=== PATIENT | female | born 1960 | race African-American/Black ===

== ENCOUNTER → 2016-12-28 | Outpatient (CLI) | payer OTHER ==
[2015-06-29 15:25] VITALS: BP 154/88
[~2016-12-28] MED LIST: CETI10TA22 PO; ESTR1TAB15 PO; HYDR12.53 PO; ISOS30TA4 PO; LACT1CAP6 PO; MULT-246 PO; NAPR220C4 PO; NITR0.4T6 SL; OMEP40CA5 PO
--- NOTE | 2016-12-28 15:17 | RAD ---
Indication chronic low back pain. AP and lateral views of the lumbar spine were obtained as well as a coned view targeted to the lumbosacral junction. Vertebral height and alignment are well maintained. There is mild scoliosis. There is disc space narrowing at L4-5 and L5-S1. Facet degenerative changes are noted at L3-4, L4-5 and L5-S1. An acute bony finding is not apparent. IMPRESSION: Chronic and degenerative changes. No acute finding seen
--- NOTE | 2016-12-28 15:19 | RAD ---
Indication chronic back pain. AP and lateral views of the thoracic spine were obtained as well as a swimmer's view. There is scoliosis. Vertebral height is well maintained. Mild degenerative changes are seen in the thoracic spine. Acute finding is not apparent IMPRESSION: Scoliosis and modest degenerative change. No acute finding seen
== END | disposition home or self-care (01) ==
LOC: RAD 08:00
PROVIDERS: ATTEND Physician Assistant Medical
DX: M47.894 Other spondylosis, thoracic region (principal); M41.84 Other forms of scoliosis, thoracic region
CPT/HCPCS: 72072; 72100

== ENCOUNTER → 2016-12-29 | Outpatient (CLI) | payer OTHER ==
[2015-06-29 15:25] VITALS: BP 154/88
[~2016-12-29] MED LIST changes: +IOHEXOL 180 MG/ML 10 ML VIAL. ONE; +methylPREDNISolone ACETATE 40 MG/ML VIAL. ONE; +methylPREDNISolone ACETATE 80 MG/ML VIAL. ONE
--- NOTE | 2016-12-29 12:32 | PAIN ---
DATE OF SERVICE: 12/29/2016 DIAGNOSES: Lumbar radiculopathy with lumbar degenerative disk disease. HISTORY OF PRESENT ILLNESS: The patient is a 56-year-old female, who returns for followup status post lumbar epidural steroid injection, last seen on 07/05/2016. The patient did very well after the injection, got about 75-80% improvement overall, but reports that the pain is returning now in the low back. She has been doing some increased heavier housework at home over the last 2 weeks, and the pain has been returning with some spasms in the back and a "lightening" electrical sensation in her low back as well. The patient reports occasional radiation in the bilateral lower extremities, but mostly staying in the low back. The patient reports it is 7 on a scale of 10. Reports no new motor or sensory deficits. No new bowel or bladder incontinence, but significant low back pain more recently. The patient reports no new motor or sensory deficits. No bowel or bladder incontinence. PHYSICAL EXAMINATION: VITAL SIGNS: The patient's blood pressure is 158/98, pulse 81, respirations 18, temperature 98.3 degrees Fahrenheit and weight 294 pounds. GENERAL: The patient is awake, alert, oriented, appropriate, is a very pleasant demeanor. HEENT: Head shows normocephalic, atraumatic. Extraocular movements are intact, symmetrical. Oral cavity shows mucous membranes moist and pink. Dentition is intact. NECK: Shows anterior throat supple without palpable lymphadenopathy noted. Swallow reflex is symmetrical. CHEST: Shows normal on inspection. Breath sounds clear to auscultation bilaterally. HEART: Shows S1 and S2 clear. No murmurs auscultated. ABDOMEN: Soft, obese, nontender, nondistended. No palpable organomegaly is noted. No rebound or guarding demonstrated. BACK: The patient's back shows spine grossly midline. Slight exaggeration of thoracic kyphosis and mild flattening of lumbar lordotic curvature. Lumbar paraspinous muscle shows some moderate tenderness with palpation diffusely in the lower lumbar distribution in the paraspinous muscles only without radiation, without atrophy, hypertrophy or asymmetry. No tenderness over the sacrum or sacroiliac regions. The patient shows good rotational motion of lumbar spine, both laterally as well as extension and flexion without significant discomfort. LOWER EXTREMITIES: Showed deep tendon reflexes 1+ in the patellar and tendo calcaneus tendons. Motor exam is strong with 5/5 dorsiflexion, extension, quadriceps and hamstring flexion and symmetrical. Options were discussed with the patient and the patient's old chart was reviewed as her current medication regimen and updated. Current review of systems updated today as well. We will proceed with a lumbar epidural steroid injection today as the first in this series with fluoroscopic guidance. Risks were again discussed including, but not limited to bleeding, infection, possibility of epidural hematoma, subsequent neurologic compromise, dural puncture, headaches, spinal cord and/or nerve damage, side effects of steroid medication and poor results regarding pain control. The patient understands and wishes to proceed. The patient will return to clinic in approximately 2 weeks for followup. She was counseled on return appointment, activity level and side effects to be aware of. DIAGNOSES: Lumbar radiculopathy with lumbar degenerative disk disease. PROCEDURES: Lumbar epidural steroid injection in translaminar approach at the L4-L5 level using C-arm fluoroscopic guidance under sterile prep and drape using local anesthetic. MEDICATIONS INJECTED: 120 mg of Depo-Medrol plus 10 mL preservative-free normal saline and 2 mL Isovue contrast. CONDITION AT DISCHARGE: Stable. The patient tolerated procedure well, had no complications. ADEBAYO KLEIN MD DR: SHAHZAD/janeen JOB#: [id number] / [id number]
== END | disposition home or self-care (01) ==
LOC: PNCL 08:53
PROVIDERS: ATTEND Anesthesiology
DX: M51.16 Intervertebral disc disorders with radiculopathy, lumbar region (principal); I10 Essential (primary) hypertension; F41.9 Anxiety disorder, unspecified; F32.9 Major depressive disorder, single episode, unspecified; M19.90 Unspecified osteoarthritis, unspecified site; K21.9 Gastro-esophageal reflux disease without esophagitis; Z90.49 Acquired absence of other specified parts of digestive tract; Z90.710 Acquired absence of both cervix and uterus; Z87.440 Personal history of urinary (tract) infections
CPT/HCPCS: 62323; J1030; J1040

== ENCOUNTER → 2017-01-20 | Day surgery (SDC) | payer OTHER ==
[~2017-01-20] MED LIST changes: +ACET325T9 PO; +FENTANYL PF 100 MCG/2 ML VIAL. IV PRN; +HYDROMORPHONE 2 MG/ML VIAL. IV PRN; -IOHEXOL 180 MG/ML 10 ML VIAL. ONE; +IV RINGERS,LACTATED 1000ML 1,000 ML IV SCH; +LIDOCAINE 1% 1 ML SYRINGE. ID PRN; +LIDOCAINE 2% PF Vial for OR 5 ML VIAL. ONE; +MORPHINE SULFATE 2 MG/ML DISP.SYRIN. IV PRN; +ONDANSETRON PF 4 MG/2 ML VIAL. IV PRN; +PROCHLORPERAZINE 10 MG/2 ML VIAL. IV PRN; +PROPOFOL 20 ML IV ONE; -methylPREDNISolone ACETATE 40 MG/ML VIAL. ONE; -methylPREDNISolone ACETATE 80 MG/ML VIAL. ONE
[2017-01-20 08:23] VITALS: BP 148/92
--- NOTE | 2017-01-23 13:18 | PATHOLOGY ---
PATHOLOGY REPORT * * * * * * * * FINAL DIAGNOSIS: Esophageal biopsies, distal esophagus: - Segments of hyperplastic squamous esophageal mucosa and esophagogastric mucosa showing chronic inflammation, consistent with reflux esophagitis. COMMENT: Sections of the distal esophageal biopsy reveal segments of focally tangentially oriented hyperplastic squamous esophageal mucosa and esophagogastric mucosa showing chronic inflammation. The findings are consistent with reflux esophagitis. There is no evidence of Pemberton's change, dysplasia, or malignancy. (JPM:mgrajat; d/t: 01/23/17) REPORT ELECTRONICALLY SIGNED BY: Salvador Fountain M.D. DATE/TIME: 01/23/2017 13:17 * * * * * * * * GROSS PATHOLOGY: Received in formalin labeled "Kathryn Olmos, distal esophagus," are 4 segments of jeter soft tissue measuring 0.7 x 0.5 x 0.3 cm in aggregate dimensions and ranging from 0.4 to 0.6 cm in maximum dimension. The specimen is submitted entirely in cassette A1. (KAH; 01/20/2017) INITIAL CPT CODE(S): A; 74095 Professional services performed by [facility] [place] [address] Technical services performed by [facility] at [address] [place] [address] [address], [place] [address]. SPECIMEN(S) RECEIVED: A.Biopsy distal esophagus CLINICAL HISTORY: GERD PATIENT: KATHRYN PEREZ /AGE: 502/23/1960 (Age: 56) PATIENT #: [id number] ALT CASE #: SPECIMEN COLLECTION DATE: 01/20/2017 SPECIMEN RECEIVED DATE: 01/20/2017 [facility] - [address] [place] [address] - PHONE: [phone] * * * END OF REPORT * * *
== END | disposition home or self-care (01) ==
LOC: ENDOS 07:00
PROVIDERS: ATTEND Internal Medicine Gastroenterology
DX: K21.0 Gastro-esophageal reflux disease with esophagitis (principal); K29.50 Unspecified chronic gastritis without bleeding; I10 Essential (primary) hypertension; K21.9 Gastro-esophageal reflux disease without esophagitis; M19.90 Unspecified osteoarthritis, unspecified site; F41.9 Anxiety disorder, unspecified; F32.9 Major depressive disorder, single episode, unspecified; Z90.710 Acquired absence of both cervix and uterus
CPT/HCPCS: 43239; G0500; J2704; 88305

== ENCOUNTER → 2017-02-03 | Outpatient (CLI) | payer OTHER ==
[2017-01-20 08:23] VITALS: BP 148/92
[~2017-02-03] MED LIST changes: -FENTANYL PF 100 MCG/2 ML VIAL. IV PRN; -HYDROMORPHONE 2 MG/ML VIAL. IV PRN; -IV RINGERS,LACTATED 1000ML 1,000 ML IV SCH; -LIDOCAINE 1% 1 ML SYRINGE. ID PRN; -LIDOCAINE 2% PF Vial for OR 5 ML VIAL. ONE; -MORPHINE SULFATE 2 MG/ML DISP.SYRIN. IV PRN; -ONDANSETRON PF 4 MG/2 ML VIAL. IV PRN; -PROCHLORPERAZINE 10 MG/2 ML VIAL. IV PRN; -PROPOFOL 20 ML IV ONE
--- NOTE | 2017-02-03 09:16 | RAD ---
DATE: 02/03/2017 EXAM: DIGITAL SCREEN BILAT W/CAD HISTORY: Routine screening COMPARISON: 02/02/2016 This study was interpreted with the benefit of Computerized Aided Detection (CAD). FINDINGS: The breasts are primarily fatty replaced. No new or enlarging breast densities are seen. No suspicious microcalcifications are evident. IMPRESSION: Stable mammograms without evidence of malignancy. BI-RADS CATEGORY: 2 BENIGN FINDING(S) RECOMMENDED FOLLOW-UP: 12M 12 MONTH FOLLOW-UP PQRS compliance statement: Patient information was entered into a reminder system with a target due date for the next mammogram. Mammography is a sensitive method for finding small breast cancers, but it does not detect them all and is not a substitute for careful clinical examination. A negative mammogram does not negate a clinically suspicious finding and should not result in delay in biopsying a clinically suspicious abnormality. "Our facility is accredited by the [employer] Mammography Program."
== END | disposition home or self-care (01) ==
LOC: MAMMO 08:00
PROVIDERS: ATTEND Family Medicine
DX: Z12.31 Encounter for screening mammogram for malignant neoplasm of breast (principal)
CPT/HCPCS: G0202; 77067

== ENCOUNTER → 2017-02-17 | Outpatient (CLI) | payer OTHER ==
[2017-01-20 08:23] VITALS: BP 148/92
--- NOTE | 2017-02-17 12:34 | RAD ---
Exam performed: Thyroid ultrasound. Indication: Cough, thyromegaly, family history of goiter. Date of Service: 02/17/17. Comparison: No priors. Technique: Real-time grayscale imaging of the thyroid gland is performed and images are obtained. Findings: The thyroid gland is somewhat heterogeneous. The right lobe measures 5.5 x 2.2 x 1.6 cm whereas the left lobe measures 4.2 x 1.7 x 1.8 cm. There are numerous scattered subcentimeter cysts in both lobes of the thyroid gland. The largest cyst measures 1.1 x 0.8 x 0.7 cm in the right inferior pole. The thyroid isthmus is normal. There is a 1.0 x 0.9 x 0.9 cm solid vascular nodule in the right aspect of the thyroid isthmus Impression: 1. Solid 1.0 x 0.9 x 0.9 cm nodule in the thyroid isthmus. 2. Multiple subcentimeters ovoid cysts in both lobes of the thyroid gland including a 1.1 cm cyst in the right inferior renal pole.
--- NOTE | 2017-02-17 12:35 | RAD ---
Exam performed: 2 views of the chest. Indication: Cough since November Date of Service:02/17/2017 2:00 AM . Comparison : 06/24/15 Findings: PA and lateral radiographs of the chest reveal a normal cardiomediastinal contour. The lungs are clear. No pleural fluid is seen. The visualized osseous structures are unremarkable. Impression: Radiographically normal chest.
== END | disposition home or self-care (01) ==
LOC: RAD 10:50
PROVIDERS: ATTEND Physician Assistant Medical
DX: E01.0 Iodine-deficiency related diffuse (endemic) goiter (principal); R05 Cough
CPT/HCPCS: 71020; 76536

== ENCOUNTER → 2017-06-08 | Outpatient (CLI) | payer OTHER ==
[2017-01-20 08:23] VITALS: BP 148/92
[~2017-06-08] MED LIST changes: +IOHEXOL 180 MG/ML 10 ML VIAL. ONE; +NITR0.4T22 SL; -NITR0.4T6 SL; +methylPREDNISolone ACETATE 40 MG/ML VIAL. ONE; +methylPREDNISolone ACETATE 80 MG/ML VIAL. ONE
--- NOTE | 2017-06-08 18:21 | PAIN ---
DATE OF SERVICE: 06/08/2017 DIAGNOSIS: Lumbar radiculopathy with lumbar degenerative disk disease. HISTORY OF PRESENT ILLNESS: The patient is a 57-year-old female who returns for followup status post lumbar epidural steroid injection x 1, last seen 12/29/2016. The patient did very well with approximately 80% improvement in terms of her low back and mostly left lower extremity pain, some on the right as well. The patient reports the pain is returning now over the past month or two with increased pain in low back, radiating to the left lower extremity, worse with prolonged standing or sitting, also with walking and standing for more than about 30 minutes to an hour. The patient reports it is anywhere from a 7-8 at it is worst and usually about a 4 or 5, and 4 on a scale of 10 today. The patient reports it is radiating, aching, can be dull and piercing as well in the low back and left leg with some shooting pain in the left leg also. The patient reports she is sleeping fairly well at night, but this has not usually awaken her from sleep. She feels better with lying on her back. PHYSICAL EXAMINATION: VITAL SIGNS: Today, the patient's blood pressure is 175/83, pulse 76, respirations 18, temperature 98.4 degrees Fahrenheit, weight is 303 pounds. GENERAL: The patient is awake, alert, oriented, appropriate, very pleasant demeanor. HEENT: Head shows normocephalic, atraumatic. Extraocular movements are intact, symmetrical. Oral cavity, mucous membranes are moist and pink. Dentition is intact. NECK: Shows anterior throat supple without palpable lymphadenopathy noted. Swallow reflex is symmetrical. CHEST: Shows normal on inspection. Breath sounds are clear to auscultation bilaterally. HEART: Shows S1 and S2 clear. ABDOMEN: Soft, nontender, nondistended, obese. No palpable organomegaly, no rebound or guarding demonstrated. BACK: Shows spine grossly in midline. The patient's normal thoracic kyphosis and has a normal-appearing lumbar lordotic curvature. The patient's lumbar paraspinous muscle shows symmetrical on inspection with palpation shows some moderate tenderness with palpation, but only diffusely without significant radiation or asymmetry, no trigger points, no other abnormalities noted. EXTREMITIES: Lower extremities exam shows deep tendon reflexes 1+ in the patellar and tendo calcaneus tendons. Motor exam is strong with 5/5 dorsiflexion and extension as well as quadriceps and hamstring flexion equal bilaterally. The patient's peripheral pulses are 1+ in the posterior tibial and dorsalis pedis pulses bilaterally. Options were discussed with the patient and the patient's old chart was reviewed as her current medication regimen updated. Current review of systems updated today as well and we will proceed with a second in this series of lumbar epidural steroid injection using C-arm fluoroscopic guidance under sterile prep and drape. Risks were again discussed including, but not limited to bleeding, infection, possibility of epidural hematoma, subsequent neurologic compromise, dural puncture, headaches, spinal cord and/or nerve damage, side effects of steroid medication and poor results regarding pain control. The patient understands and wishes to proceed. The patient will return to clinic in approximately 2 weeks for followup, was counseled on return appointment, activity level and side effects to be aware of. DIAGNOSIS: Lumbar radiculopathy with lumbar degenerative disease. PROCEDURES: Lumbar epidural steroid injection in translaminar approach at the L4-L5 level using C-arm fluoroscopic guidance under sterile prep and drape using a local anesthetic. MEDICATIONS INJECTED: A total of 120 mg Depo-Medrol plus 10 mL of preservative-free normal saline and 2 mL Isovue for contrast. CONDITION AT DISCHARGE: Stable. The patient tolerated procedure well, had no complications. ADEBAYO KLEIN MD DR: SHAHZAD/janene JOB#: [id number] / [id number]
== END | disposition home or self-care (01) ==
LOC: PNCL 13:12
PROVIDERS: ATTEND Anesthesiology
DX: M51.16 Intervertebral disc disorders with radiculopathy, lumbar region (principal); I10 Essential (primary) hypertension; K21.9 Gastro-esophageal reflux disease without esophagitis; M17.0 Bilateral primary osteoarthritis of knee; F41.9 Anxiety disorder, unspecified; F32.9 Major depressive disorder, single episode, unspecified; Z90.710 Acquired absence of both cervix and uterus; Z90.49 Acquired absence of other specified parts of digestive tract; Z88.1 Allergy status to other antibiotic agents
CPT/HCPCS: 62323; J1030; J1040

== ENCOUNTER → 2017-09-15 | Outpatient (CLI) | payer OTHER ==
[2017-01-20 08:23] VITALS: BP 148/92
--- NOTE | 2017-09-15 09:58 | PAIN ---
DATE OF SERVICE: 09/15/2017 PROGRESS NOTE FOR PAIN CLINIC DIAGNOSES: Lumbar radiculopathy with lumbar degenerative disk disease. HISTORY OF PRESENT ILLNESS: The patient is a 57-year-old female who returns for followup status post lumbar epidural steroid injection, most recently seen 06/08/2017, which did very well near 100% improvement, total for the past 3 weeks or so. Pain is returning now in the low back and into the bilateral lower extremities, slow worse on the left than the right but present bilaterally, worse with standing, walking and changing positions. The patient reports it as a 7 on a scale 10 at its worst at least, 8 on average and is 7 today. The patient describes aching, dull, shooting radiating into the low back, posterior gluteus, posterior lateral thigh, lateral anterior thighs, medial knees and into the lower leg, sometimes posteriorly and sometimes medially into the caves bilaterally, essentially equal again somewhat worse on the left at times with walking. The patient reports the pain beginning to wake her from sleep again as it did at last summer but not every night. The patient usually reposition or get out of bed change positions and get back to sleep. The patient reports no new motor or sensory deficits, no new bowel or bladder incontinence or complaints. PHYSICAL EXAMINATION: VITAL SIGNS: Today the patient's blood pressure is 158/95, pulse 95, respirations 20, temperature 98.0 degrees Fahrenheit, weight is 304 pounds. GENERAL: The patient is awake, alert, oriented, appropriate and very pleasant demeanor. HEENT: Head shows normocephalic and atraumatic. Extraocular movements are intact, symmetrical. Oral cavity: Mucous membranes moist and pink. Dentition is intact. NECK: Shows anterior throat supple without palpable lymphadenopathy noted. Swallow reflex symmetrical. CHEST: Shows normal on inspection. Breath sounds are clear to auscultation bilateral. ABDOMEN: Obese, soft, nontender and nondistended. No palpable organomegaly is noted. BACK: Shows spine grossly in the midline. Slight exaggeration of thoracic kyphosis, mild flattening lumbar lordotic curvature. Lumbar paraspinous muscle shows symmetrical on inspection with palpation shows some moderate tenderness along the low lumbar distribution diffusely bilaterally without radiation. The patient's lower extremity showed deep tendon reflexes are 1+ in the patellar and tendo calcaneus tendons, are equal. Motor exam is strong with 5/5 dorsiflexion, extension, quadriceps and hamstring flexion and equal. Peripheral pulses are 1+ posterior tibial. No peripheral edema is noted bilaterally. Options were discussed with the patient. The patient's old chart was reviewed as well as her current medication regimen and updated. Current review of systems updated today as well. We will proceed with a third in the series lumbar epidural steroid injection with fluoroscopic guidance. Risks were again discussed including but not limited to bleeding, infection, possibility of epidural hematoma and subsequent neurological compromise, dural puncture headache, spinal cord and/or nerve damage, side effects of steroid medication and poor results regarding pain control. The patient understands and wished to proceed. The patient to return to clinic in approximately 2 weeks for followup, was counseled on return appointment, activity level and side effects to be aware of. DIAGNOSIS: Lumbar radiculopathy with lumbar degenerative disease. PROCEDURES: Lumbar epidural steroid injection, translaminar approach, L4-L5 level using C-arm fluoroscopic guidance under sterile prep and drape using local anesthetic. MEDICATION INJECTED: A total of 120 mg Depo-Medrol plus 10 mL of preservative-free normal saline and 2 mL of Isovue for contrast. CONDITION AT DISCHARGE: Stable. The patient tolerated procedure well, had no complications. ADEBAYO KLEIN MD DR: SHAHZAD/janene JOB#: [id number] / [id number]
== END ==
LOC: PNCL 08:20
PROVIDERS: ATTEND Anesthesiology
DX: M51.16 Intervertebral disc disorders with radiculopathy, lumbar region (principal); I10 Essential (primary) hypertension; K21.9 Gastro-esophageal reflux disease without esophagitis; F32.9 Major depressive disorder, single episode, unspecified; M19.90 Unspecified osteoarthritis, unspecified site; F41.9 Anxiety disorder, unspecified; Z90.49 Acquired absence of other specified parts of digestive tract; Z90.710 Acquired absence of both cervix and uterus
CPT/HCPCS: 62323; J1030; J1040

== ENCOUNTER → 2018-02-26 | Outpatient (CLI) | payer OTHER ==
[~2018-02-26] MED LIST changes: -ACET325T9 PO; -CETI10TA22 PO; -ESTR1TAB15 PO; -HYDR12.53 PO; +IOHEXOL 180 MG/ML 10 ML VIAL.; -IOHEXOL 180 MG/ML 10 ML VIAL. ONE; -ISOS30TA4 PO; -LACT1CAP6 PO; +LIDOCAINE 1% PF 2 ML VIAL.; -MULT-246 PO; -NAPR220C4 PO; -NITR0.4T22 SL; -OMEP40CA5 PO; +methylPREDNISolone ACETATE 40 MG/ML VIAL.; -methylPREDNISolone ACETATE 40 MG/ML VIAL. ONE; +methylPREDNISolone ACETATE 80 MG/ML VIAL.; -methylPREDNISolone ACETATE 80 MG/ML VIAL. ONE
== END | disposition home or self-care (01) ==
LOC: PNCL 14:01
DX: M51.16 Intervertebral disc disorders with radiculopathy, lumbar region (principal); I10 Essential (primary) hypertension; Z90.49 Acquired absence of other specified parts of digestive tract; Z90.710 Acquired absence of both cervix and uterus; K21.9 Gastro-esophageal reflux disease without esophagitis; F41.9 Anxiety disorder, unspecified; F32.9 Major depressive disorder, single episode, unspecified; M17.0 Bilateral primary osteoarthritis of knee; Z88.1 Allergy status to other antibiotic agents; Z80.1 Family history of malignant neoplasm of trachea, bronchus and lung
CPT/HCPCS: 62323; J1030; J1040; Q9965

== ENCOUNTER → 2018-03-26 | Outpatient (CLI) | payer OTHER | END | disposition home or self-care (01) | LOC: MAMMO 12:43 | DX: Z12.31 Encounter for screening mammogram for malignant neoplasm of breast (principal) | CPT/HCPCS: 77063; 77067 ==

== ENCOUNTER → 2018-06-05 | Outpatient (CLI) | payer OTHER ==
[2017-01-20 08:23] VITALS: BP 148/92
[~2018-06-05] MED LIST changes: +ACET325T9 PO; +CETI10TA22 PO; +ESTR1TAB15 PO; +HYDR12.53 PO; -IOHEXOL 180 MG/ML 10 ML VIAL.; +ISOS30TA4 PO; +LACT1CAP6 PO; -LIDOCAINE 1% PF 2 ML VIAL.; +MULT-246 PO; +NAPR220C4 PO; +NITR0.4T22 SL; +OMEP40CA5 PO; -methylPREDNISolone ACETATE 40 MG/ML VIAL.; -methylPREDNISolone ACETATE 80 MG/ML VIAL.
--- NOTE | 2018-06-05 13:26 | RAD ---
Thyroid ultrasound, 06/05/2018: HISTORY: Follow-up thyroid nodules, enlarged thyroid gland The right lobe of the gland measures 5.9 x 2.5 x 2.1 cm while the left lobe of the gland measures 5.6 x 1.8 x 2.5 cm. There are numerous nodules in both lobes of the gland. There is a 12 x 9 x 10 mm hypoechoic nodule in the right side of the isthmus. Its margins are smooth. There is internal vascularity compatible with a solid nodule. There is posterior acoustic enhancement. It is rounded in configuration. It measured 9 x 9 x 10 mm on the previous study of 02/17/2017. It therefore appears to have increased slightly in size. In the inferolateral aspect of the left lobe of the gland there is a 14 x 9 x 11 mm nodule which is also probably solid. It is heterogeneous demonstrating isoechoic and slightly hypoechoic components. Its margins are less clearly defined. It was not identified on the previous study of 02/17/2017, however, that is likely due to technical factors. There are several other small smooth slightly hypoechoic nodules in both lobes. No definite additional enlarging nodule is seen. No thyroid calcifications are evident. IMPRESSION: 1. Multinodular thyroid gland as described above. 2. Small hypoechoic nodule in the isthmus which has increased slightly in size. The findings are considered to be moderately suspicious and ultrasound-guided biopsy is suggested for further evaluation. 3. A nodule in the lower pole of the left lobe of the gland is considered to be only mildly suspicious. Sonographic surveillance of this nodule is suggested. Electronically signed by: Eder Plata MD (06/05/2018 1:23 PM) [facility]
== END | disposition home or self-care (01) ==
LOC: US 14:12
PROVIDERS: ATTEND Family Medicine
DX: E04.2 Nontoxic multinodular goiter (principal); I10 Essential (primary) hypertension; M17.0 Bilateral primary osteoarthritis of knee; K21.9 Gastro-esophageal reflux disease without esophagitis; Z90.49 Acquired absence of other specified parts of digestive tract; Z90.710 Acquired absence of both cervix and uterus; Z87.440 Personal history of urinary (tract) infections; Z80.1 Family history of malignant neoplasm of trachea, bronchus and lung
CPT/HCPCS: 76536

== ENCOUNTER → 2018-06-29 | Outpatient (CLI) | payer OTHER ==
[2017-01-20 08:23] VITALS: BP 148/92
--- NOTE | 2018-06-29 13:51 | RAD ---
Ultrasound-guided thyroid biopsy, 06/29/2018: History: Suspicious nodule Previous studies demonstrated a suspicious hypoechoic nodule in the isthmus centered just to the right of midline. Under local anesthesia, aseptic conditions and sonographic guidance a 25-gauge needle was passed into this nodule via a left anteromedial approach. 4 separate aspirates were obtained from different portions of the nodule in this manner. Hemostasis was then obtained. The patient tolerated the procedure well and left the department in good condition. The pathology results are pending.
--- NOTE | 2018-07-04 11:10 | PATHOLOGY ---
Note [facility] Accession Number: [id number] TESTS RESULT FLAG UNITS REF RANGE LAB Clinician Provided Cytology Information No. of containers..01 Other (Miscellaneous) Source: RT ISTHMUS DIAGNOSIS: RT ISTHMUS INCONCLUSIVE. B[place]ES[place] CATEGORY III. FOLLICULAR LESION OF UNDETERMINED SIGNIFICANCE. SPECIMEN CONSISTS OF ABUNDANT FOLLICULAR CELLS WITH HURTHLE CELL CHANGES WITH SCANT COLLOID. THE DIFFERENTIAL DIAGNOSIS INCLUDES HURTHLE CELL ADENOMATOID NODULE AND HURTHLE CELL FOLLICULAR NEOPLASM. THIS INTERPRETATION INCLUDES EVALUATION OF A CELL BLOCK. Pathologist ICD10: 02 R89.6 Signed out by: Eder Vargas MD, Pathologist NPI- [id number] Performed by: Marla Durand, Test Engineering Technician ([facility]) Gross description: 01 30ML, DARK RED, CLEAR /LCS FLAG LEGEND: L-Low Normal,H-High Normal,LL-Alert Low,HH-Alert High <-Panic Low,>-Panic High,A-Abnormal,AA-Critical Abnormal Performed at: [facility] [address] [place] [address] Luke Rasheed MD, 02 [facility] [address] [place] [id number] Bipin Tripathi MD, Specimen Comment: A courtesy copy of this report has been sent to Specimen Comment: [phone]. Specimen Comment: Report sent to Performed at: 01 [facility] [address], [place], [place] [id number] MD Luke Rasheed MD Phone: [phone]
== END | disposition home or self-care (01) ==
LOC: US 14:49
PROVIDERS: ATTEND Physician Assistant Medical
DX: E04.1 Nontoxic single thyroid nodule (principal); Z88.1 Allergy status to other antibiotic agents
CPT/HCPCS: 10022; 60300; 76942

== ENCOUNTER → 2018-07-30 | Outpatient (CLI) | payer OTHER ==
[2017-01-20 08:23] VITALS: BP 148/92
[~2018-07-30] MED LIST changes: +OXYC1TAB7 PO
[2018-07-30 13:38] LABS: ALBUMIN 3.4 g/dL (3.4-5.0); CALCIUM 9.7 mg/dL (8.5-10.1); CREATININE 0.8 mg/dL (0.6-1.0); GFR 89.1; POTASSIUM 3.7 mmol/L (3.5-5.1)
[2018-07-30 13:47] LABS: BASO # 0.1 x10^3/uL (0.0-0.2); BASO % 1 % (0-3); EOS # 0.2 x10^3/uL (0.0-0.7); EOS % 2 % (0-3); HEMATOCRIT 37.4 % (36.0-47.0); HEMOGLOBIN 12.7 g/dL (12.0-15.5); LYMPH % 24 % (24-48); MEAN CORPUSCULAR HEMOGLOBIN 32 pg (25-35); MEAN CORPUSCULAR HGB CONC 34 g/dL (31-37); MEAN CORPUSCULAR VOLUME 94 fL (79-100); MONO # 0.6 x10^3/uL (0.0-1.1); MONO % 7 % (0-9); NEUT # 5.4 x10^3uL (1.8-7.7); NEUT % 66 % (31-73); PLATELET COUNT 422 x10^3/uL (140-400); RED CELL DISTRIBUTION WIDTH 13.8 % (11.5-14.5); WHITE BLOOD COUNT 8.2 x10^3/uL (4.0-11.0)
== END | disposition home or self-care (01) ==
LOC: SURGPAT 12:26
PROVIDERS: ATTEND Surgery
DX: Z01.818 Encounter for other preprocedural examination (principal); E04.1 Nontoxic single thyroid nodule; I10 Essential (primary) hypertension; K21.9 Gastro-esophageal reflux disease without esophagitis; M19.90 Unspecified osteoarthritis, unspecified site; F32.9 Major depressive disorder, single episode, unspecified; F41.9 Anxiety disorder, unspecified; Z90.49 Acquired absence of other specified parts of digestive tract; Z90.710 Acquired absence of both cervix and uterus
CPT/HCPCS: 36415; 80048; 82040; 85025

== ENCOUNTER 2018-08-06 07:36 | Inpatient (IN) | payer OTHER ==
[~2018-08-06] VITALS: Ht 168.9 cm; Wt 137.0 kg
[2018-08-06] VITALS (9 sets, daily range): BP systolic 111–182; BP diastolic 73–90
[~2018-08-06 07:36] MED LIST changes: +BUPIVAC MPF-EPI 0.5%-1:200000 30 ML VIAL. ONE; +DEXAMETHASONE SOD PHOS 20 MG/5 ML VIAL. ONE; +FAMOTIDINE 20 MG/2 ML VIAL ONE; +HYDROmorphone 2 MG/ML VIAL IV PRN; +IV RINGERS,LACTATED 1000ML 1,000 ML IV SCH; +LIDOCAINE 1% PF 2 ML VIAL. ID PRN; +LIDOCAINE 2% PF Vial for OR 5 ML VIAL. ONE; +MIDAZOLAM HCL/PF 2 MG/2 ML VIAL. ONE; +ONDANSETRON PF 4 MG/2 ML VIAL. IV PRN; +ONDANSETRON PF 4 MG/2 ML VIAL. ONE; -OXYC1TAB7 PO; +PROCHLORPERAZINE 10 MG/2 ML VIAL. IV PRN; +PROPOFOL 20 ML IV ONE; +REMIFENTANIL 2 MG VIAL. IV ONE; +SUCCINYLCHOLINE 200 MG/10 ML VIAL. ONE; +fentaNYL PF VIAL 100 MCG/2 ML VIAL IV PRN; +fentaNYL PF VIAL 100 MCG/2 ML VIAL ONE
[2018-08-06] MEDS ORDERED: ceFAZolin SODIUM 3 GM in IV DEXTROSE 5% 100ML 100 ML IV PRN (08:00)
[2018-08-06] MEDS ORDERED: PHENYLEPHRINE in 0.9% NACL PF 1 MG/10 ML SYRINGE. IV ONE (08:48)
[2018-08-06] MEDS ORDERED: LIDOCAINE 4% KIT 4 ML SOLUTION. TP ONE (09:00)
[2018-08-06] MEDS ORDERED: SEVOFLURANE 61 TO 120 MINUTES. IH ONE (09:51)
[2018-08-06] MEDS ORDERED: PROCHLORPERAZINE 10 MG/2 ML VIAL. ONE (10:25)
[2018-08-06] MEDS ORDERED: MORPHINE SULFATE 2 MG/ML VIAL. ONE (10:25)
[2018-08-06] MEDS: MORPHINE SULFATE 2 MG/ML VIAL. IV PRN ×2 (10:29→10:39)
[2018-08-06] MEDS ORDERED: diphenhydrAMINE HCL 25 MG CAPSULE PO PRN (10:30)
[2018-08-06] MEDS ORDERED: ONDANSETRON PF 4 MG/2 ML VIAL. IV PRN (10:30)
[2018-08-06] MEDS ORDERED: oxyCODONE/APAP 5/325 1 TAB TABLET PO PRN (10:30)
[2018-08-06] MEDS ORDERED: 0.9 % SODIUM CHLORIDE 10 ML DISP.SYRIN. IV PRN (10:30)
[2018-08-06] MEDS ORDERED: HYDROmorphone 2 MG/ML VIAL IV PRN (10:30)
[2018-08-06] MEDS ORDERED: LABETALOL 20 MG/4 ML DISP.SYRIN. IVP ONE (10:37)
[2018-08-06] MEDS ORDERED: fentaNYL PF VIAL 100 MCG/2 ML VIAL ONE ×2 (10:37→11:11)
--- NOTE | 2018-08-06 10:40 | PDOC ---
BRIEF OPERATIVE NOTE Date: Aug 06, 2018 Pre-Op Diagnosis multinodular goiter Post-Op Diagnosis same Procedure Performed total thyroidectomy Surgeon Miguelito Vocational Nurse Lvn Dr Cheng Anesthesia Type: General (with NIMS) Blood Loss 25cc IV Fluid 1000cc Urine Output 30cc (patient voided just before going to the OR) Specimens Obtained thyroid with suture in left upper pole Findings multiple nodules Complications none Operative Note Wk # [id number] PERICO VALADEZ MD Aug 06, 2018 10:40
[2018-08-06] MEDS: fentaNYL PF VIAL 100 MCG/2 ML VIAL IV PRN ×4 (10:51→11:36)
[2018-08-06] MEDS: LABETALOL 20 MG/4 ML DISP.SYRIN. IVP PRN ×2 (10:56→11:15)
--- NOTE | 2018-08-06 12:27 | OP ---
DATE OF SURGERY: 08/06/2018 PREOPERATIVE DIAGNOSIS: Multinodular goiter. POSTOPERATIVE DIAGNOSIS: Multinodular goiter. PROCEDURE: Total thyroidectomy. SURGEON: Vish Valadez MD JEWEL INSERTER: Dr. Cheng. ANESTHESIA: General endotracheal with NIMS. BLOOD LOSS: 25. INTRAVENOUS FLUID: 1 liter. URINE OUTPUT: 30 mL (the patient voided just prior to going to the OR). 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 A fine needle aspiration showed some follicular changes of uncertain significance, but that is the classification 3. She is brought for total thyroidectomy. OPERATIVE FINDINGS: Multiple nodules were scattered throughout both lobes and the isthmus. OPERATIVE REPORT: The patient brought to the operating suite, given a general endotracheal anesthetic with NIMS and the neck was prepped and draped in usual sterile fashion after being placed in extension. Incision was made and dissection carried down to the cervical fascia. This was exposed superiorly and inferiorly with cautery dissection. It was then opened in the midline and the left-sided strap muscles were reflected off the left lobe and isthmus. Superior pole vessels were isolated, ligated, and divided. The gland was mobilized toward the midline by taking down lateral attachments, taking care to preserve any parathyroid tissue and avoid the recurrent laryngeal nerve. Once we had mobilized it to the midline, the right side was approached in a similar fashion. Strap muscles were reflected. Superior pole vessels ligated and the gland rotated toward the midline, taking care to preserve parathyroid tissue and avoid the recurrent nerve. We then freed the isthmus off the midline to allow delivery of the gland intact. It was marked with a silk suture at the left upper pole. Wound was checked for adequate hemostasis and when present and a correct sponge count was obtained, a Armando drain was cut in a Y configuration with the arms placed on each side of the trachea and brought out the middle of the incision. Cervical fascia was then approximated with interrupted inverted 3-0 chromic. Neck taken out of extension and subcutaneous tissue approximated with 3-0 chromic. Skin closed loosely with a subcuticular 4-0 Prolene. Sterile dressings applied. The patient awakened from her anesthetic and taken to the recovery room where she was in good voice. VISH VALADEZ MD DR: ZULEIMA/janene JOB#: [id number] / [id number]
[2018-08-06] MEDS: oxyCODONE/APAP 5/325 1 TAB TABLET PO PRN ×2 (14:19→18:37)
[2018-08-06] MEDS: POTASSIUM CL 20MEQ-0.45% NACL 1,000 ML IV SCH (14:20)
[2018-08-06] MEDS: DOCUSATE SODIUM 100 MG CAPSULE. PO SCH (20:57)
[2018-08-06] MEDS ORDERED: ENOXAPARIN 40 MG/0.4 ML SYRINGE. SQ SCH (21:00)
[2018-08-07] MEDS: oxyCODONE/APAP 5/325 1 TAB TABLET PO PRN ×3 (01:40→15:25)
[2018-08-07 03:20] VITALS: BP 134/77
[2018-08-07] MEDS: POTASSIUM CL 20MEQ-0.45% NACL 1,000 ML IV SCH ×2 (03:32→13:07)
[2018-08-07 07:00] VITALS: BP 138/72
[2018-08-07] MEDS ORDERED: PANTOPRAZOLE 40 MG TABLET.DR. PO SCH (07:30)
[2018-08-07] MEDS: DOCUSATE SODIUM 100 MG CAPSULE. PO SCH (08:43)
[2018-08-07] MEDS ORDERED: hydroCHLOROthiazide 12.5 MG CAPSULE PO SCH (09:00)
[2018-08-07] MEDS ORDERED: ESTRADIOL 1 MG TABLET. PO SCH (09:00)
[2018-08-07] MEDS ORDERED: CETIRIZINE HCL 10 MG TABLET. PO SCH (09:00)
--- NOTE | 2018-08-07 10:18 | PDOC ---
VANESSA WATTS APRN 08/07/18 1018: SURGICAL PROGRESS NOTE Subjective feels better had trouble right after surgery with swelling, anxiety, pain voice hoarseness improved taking diet Vital Signs Vital Signs Date Time Temp Pulse Resp B/P (MAP) Pulse Ox O2 Delivery O2 Flow Rate FiO2 08/07/18 08:59 Room Air 08/07/18 07:00 97.9 99 20 138/72 (94) 100 97.9 08/07/18 02:40 10.0 I&O Intake and Output 08/07/18 07:00 Intake Total 370 ml Balance 370 ml Intake Oral 370 ml # Voids 2 General: Alert, Oriented X3, Cooperative, No acute distress HEENT: Other (neck without edema, drainage from gustavo) Labs Laboratory Tests Test 08/06/18 11:18 08/07/18 03:55 Calcium Level 9.2 mg/dL (8.5-10.1) 9.0 mg/dL (8.5-10.1) Laboratory Tests Test 08/06/18 11:18 08/07/18 03:55 Calcium Level 9.2 mg/dL (8.5-10.1) 9.0 mg/dL (8.5-10.1) Problem List s/p thyroidectomy plan home this afternoon PERICO VALADEZ MD 08/07/18 5928: SURGICAL PROGRESS NOTE Assessment/Plan pt seen family at bedside Gustavo drain removed, steri-strips applied home today f/u next week VANESSA WATTS APRN Aug 07, 2018 10:18 PERICO VALADEZ MD Aug 07, 2018 13:58
--- NOTE | 2018-08-07 10:19 | DISCH ---
DISCHARGE INSTRUCTIONS Condition on Discharge Condition on Discharge: Stable Activity After Discharge Activity Instructions for Disc: Resume previous activity, Activity as tolerated , Avoid exertion Other activity instructions: ok to shower Exercise Instruction after Dis: Progress as tolerated Driving Instructions after Dis: Do not drive Weight Bearing Status after Di: Full weight bearing Diet after Discharge Diet after Discharge: Regular Liquid Texture: Thin Liquid Wound Incision Care Wound/Incision Care: Change dressing, May get incision wet Contacting the DRDelmy after DC Call your doctor for: Concerns you may have Follow-Up Follow up with: Dr Torrez 1 weeks, call to schedule [phone] VANESSA WATTS APRN Aug 07, 2018 10:19
[2018-08-07] MEDS ORDERED: OXYC1TAB7 PO (10:20)
[2018-08-07 11:00] VITALS: BP 122/71
--- NOTE | 2018-08-07 13:59 | PDOC3 ---
Discharge Summary Visit Information Date of Admission: Aug 06, 2018 Date of Discharge: Aug 07, 2018 Admitting Diagnosis Comment: multinodular goiter Final Diagnosis same Brief Hospital Course Allergies Allergies Coded Allergies Type Severity Reaction Last Updated Verified erythromycin base Allergy Intermediate Rash 08/06/18 No hyaluronic acid Allergy Intermediate Hives 08/06/18 Yes Vital Signs Vital Signs Date Time Temp Pulse Resp B/P (MAP) Pulse Ox O2 Delivery O2 Flow Rate FiO2 08/07/18 11:00 97.9 80 18 122/71 (88) 97 97.9 08/07/18 09:59 Room Air 08/07/18 02:40 10.0 Lab Results Laboratory Tests Test 08/06/18 11:18 08/07/18 03:55 Calcium Level 9.2 mg/dL (8.5-10.1) 9.0 mg/dL (8.5-10.1) Laboratory Tests Test 08/07/18 03:55 Calcium Level 9.0 mg/dL (8.5-10.1) Brief Hospital Course 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 She underwent total thyroidectomy. Did well and went home on her first POD Discharge Information Condition at Discharge: Improved Follow Up: Weeks Disposition/Orders: D/C to Home Scheduled Acetaminophen (Tylenol) 325 Mg Tablet, 1-2 TAB PO QID, #60 Ref 2 (Reported) Entered as Reported by: Jesenia Cha on 01/20/17 0710 Last Action: HELD on 08/06/18 1032 by PERICO VALADEZ Cetirizine Hcl (Zyrtec) 10 Mg Tablet, 1 TAB PO DAILY, #30 Ref 2 (Reported) Entered as Reported by: LIZETH PARKS on 02/16/15 1443 Last Taken: Unknown Dose on 08/06/18 0700 Last Action: Continued on 08/06 1032 by PERICO VALADEZ Estradiol (Estradiol) 1 Mg Tablet, 1 TAB PO DAILY, #30 Ref 11 (Reported) Entered as Reported by: LIZETH PARKS on 11/26/15 0758 Last Taken: Unknown Dose on 08/05/18 1900 Last Action: Continued on 08/06 1032 by PERICO VALADEZ Hydrochlorothiazide (Hydrochlorothiazide Capsule ) 12.5 Mg Capsule, 1 CAP PO DAILY, #30 Ref 5 (Reported) Entered as Reported by: LIZETH PARKS on 02/16/15 1441 Last Taken: Unknown Dose on 08/05/18 1900 Last Action: Converted on 08/06 1032 by PERICO VALADEZ Multivitamin (Multi-Vitamin Daily) 1 Each Tablet, 1 EACH PO DAILY, (Reported) Entered as Reported by: LIZETH PARKS on 02/16/15 1442 Last Action: HELD on 08/06/18 1032 by PERICO VALADEZ Omeprazole (Omeprazole) 40 Mg Capsule., 1 CAP PO DAILY, #30 Ref 3 (Reported) Entered as Reported by: Jesenia Cha on 01/20/17 0711 Last Taken: Unknown Dose on 08/05/18 2100 Last Action: Converted on 08/06 1032 by PERICO VALADEZ Scheduled PRN Oxycodone Hcl/Acetaminophen (Oxycodone-Acetaminophen 5-325) 1 Each Tablet, 1 TAB PO PRN Q4HRS PRN for MILD PAIN, 1ST CHOICE, #30 Ref 0 Prescribed by: Tatiana Caballero on 08/07/18 1020 PERICO VALADEZ MD Aug 07, 2018 13:59
[2018-08-07 15:00] VITALS: BP 133/79
--- NOTE | 2018-08-08 15:08 | PATHOLOGY ---
[facility] Accession Number: [id number] . 01 Material submitted: . THYROID WITH STITCH LEFT UPPER POLE . 01 Clinical history: . Total thyroidectomy . 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 - Adenomatous and colloid nodules, right and left lobes, multiple, largest measuring 1.2 cm. - No parathyroid glands identified. [facility]/08/08/2018 . 02 Comment: There is no evidence of malignancy. (JPM:[facility] 08/08/2018) . 02 Electronically signed: . Salvador Fountain MD, Pathologist NPI- [id number] . 01 Gross description: . The specimen is received in formalin, labeled "MiltonserenityailynbubbaMisha, thyroid" and consists of a 29 g total thyroid specimen oriented with a stitch on the left upper pole. The left lobe measures 4.2 x 2.8 x 1.4 cm, right lobe 4.7 x 2.9 x 1.5 cm, and isthmus approximately 2.0 x 2.6 cm. The posterior surface is jeter-brown, ragged, and partially cauterized. The anterior surfaces are jeter-brown and intact with adhesions. The posterior aspect of both lobes is inked black, the anterior right lobe blue, and anterior left lobe orange. . The right lobe is sectioned from superior to inferior revealing multiple colloid nodules ranging from 0.2 x 0.2 cm to 1.1 x 0.8 cm. The largest nodule is more firm/solid with smooth jeter-brown cut surfaces that abut the anterior surface. The nodules make up approximately 20% of the parenchyma with the remainder of the parenchyma being soft brown-red without additional masses or lesions. . The left lobe is sectioned from superior to inferior to reveal a few colloid nodules ranging from 0.1 x 0.1-1.2 x 1.1 cm. The largest nodule has a more solid and smooth homogeneous jeter-brown cut surface. This nodule abuts the anterior orange inked margin. The nodules make up approximately 10-15% of the parenchyma with the remaining 85-90% being soft brown-red without additional masses or lesions. Irrigator Gravity Flow sections are submitted as follows: . A1-A2: Right lobe solid nodule to include entire capsule margin A3-A4: Additional colloid nodules right lobe A5: Unremarkable parenchyma right lobe A6-A7: Left lobe largest and most solid nodule to include entire capsule margin A8-A9: Left lobe litigation claim representative to include unremarkable parenchyma (SDY; 08/07/2018) SYU/SYU . 02 Pathologist provided ICD-10: D34, E04.1 . 02 CPT . 631188 Specimen Comment: A courtesy copy of this report has been sent to Specimen Comment: [phone], . Specimen Comment: Report sent to / DR ALEXANDER Performed at: 01 [facility] [address] [facility] [address], [place] [id number] MD Luke Rasheed MD Phone: [phone] Performed at: 02 [facility] [address] [place], [place] [id number] MD Salvador Fountain MD Phone: [phone]
== END 2018-08-07 15:45 | disposition home or self-care (01) | DRG 627 ==
LOC: SURG 07:36 → 4 NORTH 10:52
PROVIDERS: ADMIT Surgery; ATTEND Surgery
PROC: 4A11X4G Monitoring of Peripheral Nervous Electrical Activity, Intraoperative, External Approach (ICD-10-PCS; 2018-08-06)
PROC: 0GTK0ZZ Resection of Thyroid Gland, Open Approach (ICD-10-PCS; principal; 2018-08-06 09:00)
DX: E04.2 Nontoxic multinodular goiter (principal); F41.9 Anxiety disorder, unspecified; Z79.899 Other long term (current) drug therapy; Z88.8 Allergy status to other drugs, medicaments and biological substances; Z88.1 Allergy status to other antibiotic agents
CPT/HCPCS: 36415; 82310; 88307; A7015; J0330; J0780; J1100; J1650; J2001; J2250; J2270; J2370; J2405; J2704; J3010; J3490; J7120

== ENCOUNTER → 2018-09-12 | Outpatient (CLI) | payer OTHER ==
[~2018-09-12] MED LIST changes: -BUPIVAC MPF-EPI 0.5%-1:200000 30 ML VIAL. ONE; -DEXAMETHASONE SOD PHOS 20 MG/5 ML VIAL. ONE; -FAMOTIDINE 20 MG/2 ML VIAL ONE; -HYDR12.53 PO; +HYDR12.575 PO; -HYDROmorphone 2 MG/ML VIAL IV PRN; -IV RINGERS,LACTATED 1000ML 1,000 ML IV SCH; -LIDOCAINE 1% PF 2 ML VIAL. ID PRN; -LIDOCAINE 2% PF Vial for OR 5 ML VIAL. ONE; -MIDAZOLAM HCL/PF 2 MG/2 ML VIAL. ONE; -ONDANSETRON PF 4 MG/2 ML VIAL. IV PRN; -ONDANSETRON PF 4 MG/2 ML VIAL. ONE; +OXYC1TAB7 PO; -PROCHLORPERAZINE 10 MG/2 ML VIAL. IV PRN; -PROPOFOL 20 ML IV ONE; -REMIFENTANIL 2 MG VIAL. IV ONE; -SUCCINYLCHOLINE 200 MG/10 ML VIAL. ONE; -fentaNYL PF VIAL 100 MCG/2 ML VIAL IV PRN; -fentaNYL PF VIAL 100 MCG/2 ML VIAL ONE
[2018-09-12 07:34] LABS: BASO # 0.1 x10^3/uL (0.0-0.2); BASO % 1 % (0-3); EOS # 0.2 x10^3/uL (0.0-0.7); EOS % 3 % (0-3); HEMATOCRIT 38.4 % (36.0-47.0); HEMOGLOBIN 13.3 g/dL (12.0-15.5); LYMPH # 1.7 x10^3/uL (1.0-4.8); LYMPH % 25 % (24-48); MEAN CORPUSCULAR HEMOGLOBIN 32 pg (25-35); MEAN CORPUSCULAR HGB CONC 35 g/dL (31-37); MEAN CORPUSCULAR VOLUME 94 fL (79-100); MONO # 0.5 x10^3/uL (0.0-1.1); MONO % 7 % (0-9); NEUT # 4.3 x10^3uL (1.8-7.7); NEUT % 64 % (31-73); PLATELET COUNT 388 x10^3/uL (140-400); RED CELL DISTRIBUTION WIDTH 14.7 % (11.5-14.5); WHITE BLOOD COUNT 6.7 x10^3/uL (4.0-11.0)
[2018-09-12 07:57] LABS: ALBUMIN 3.2 g/dL (3.4-5.0); ALBUMIN/GLOBULIN RATIO 0.6 (1.0-1.7); CALCIUM 9.1 mg/dL (8.5-10.1); GFR 68.9; POTASSIUM 3.6 mmol/L (3.5-5.1); TOTAL BILIRUBIN 0.6 mg/dL (0.2-1.0); TOTAL PROTEIN 8.5 g/dL (6.4-8.2)
[2018-09-12 07:58] LABS: CHOLESTEROL/HDL RATIO 2.9
[2018-09-12 08:09] LABS: FREE T4 0.67 ng/dL (0.76-1.46); THYROID STIM HORMONE (TSH) 49.133 uIU/mL (0.358-3.74)
== END | disposition home or self-care (01) ==
LOC: LAB 07:12
PROVIDERS: ATTEND Physician Assistant Medical
DX: Z13.220 Encounter for screening for lipoid disorders (principal); E89.0 Postprocedural hypothyroidism; I10 Essential (primary) hypertension; Z98.890 Other specified postprocedural states
CPT/HCPCS: 36415; 80053; 80061; 84439; 84443; 85025

== ENCOUNTER → 2018-10-18 | Outpatient (CLI) | payer OTHER ==
[~2018-10-18] MED LIST changes: +FAMO20TA5 PO; +PRED50TA PO
[2018-10-18 08:16] LABS: FREE T4 0.73 ng/dL (0.76-1.46); THYROID STIM HORMONE (TSH) 37.531 uIU/mL (0.358-3.74)
== END | disposition home or self-care (01) ==
LOC: LAB 07:34
PROVIDERS: ATTEND Physician Assistant Medical
DX: E89.0 Postprocedural hypothyroidism (principal)
CPT/HCPCS: 36415; 84439; 84443

== ENCOUNTER 2018-11-02 13:48 | Emergency (ER) | payer OTHER ==
[~2018-11-02] VITALS: Ht 167.6 cm; Wt 129.3 kg
[~2018-11-02 13:48] MED LIST changes: -FAMO20TA5 PO; -PRED50TA PO
[2018-11-02 13:55] VITALS: BP 183/116
[2018-11-02] MEDS ORDERED: FAMOTIDINE 20 MG/2 ML VIAL IVP ONE (14:15)
[2018-11-02] MEDS ORDERED: methylPREDNISolone SOD SUCC PF 125 MG/2 ML VIAL. IV ONE (14:15)
[2018-11-02] MEDS ORDERED: diphenhydrAMINE 50 MG/ML VIAL IV ONE (14:15)
[2018-11-02 14:28] LABS: BASO # 0.1 x10^3/uL (0.0-0.2); BASO % 1 % (0-3); EOS # 0.2 x10^3/uL (0.0-0.7); EOS % 4 % (0-3); HEMATOCRIT 39.3 % (36.0-47.0); HEMOGLOBIN 13.3 g/dL (12.0-15.5); LYMPH # 1.5 x10^3/uL (1.0-4.8); LYMPH % 25 % (24-48); MEAN CORPUSCULAR HEMOGLOBIN 32 pg (25-35); MEAN CORPUSCULAR HGB CONC 34 g/dL (31-37); MEAN CORPUSCULAR VOLUME 95 fL (79-100); MONO # 0.4 x10^3/uL (0.0-1.1); MONO % 7 % (0-9); NEUT % 64 % (31-73); PLATELET COUNT 396 x10^3/uL (140-400); RED BLOOD COUNT 4.15 x10^6/uL (3.50-5.40); RED CELL DISTRIBUTION WIDTH 13.5 % (11.5-14.5); WHITE BLOOD COUNT 6.3 x10^3/uL (4.0-11.0)
[2018-11-02 14:36] LABS: CALCIUM 9.6 mg/dL (8.5-10.1); CREATININE 0.9 mg/dL (0.6-1.0); GFR 77.8; POTASSIUM 3.5 mmol/L (3.5-5.1)
--- NOTE | 2018-11-02 16:10 | PHYS DOC ---
Past Medical History Past Medical History: GERD, Hypertension Past Surgical History: Cholecystectomy, Hysterectomy Alcohol Use: None Drug Use: None Adult General Chief Complaint Chief Complaint: ALLERGIC REACTION HPI HPI Patient is a 58 year old female with a history of hypertension, acid reflex, who presents today to be evaluated for an allergic reaction. Patient states she was at the cafeteria having lunch, she states she had a chicken breast with tomatoes, vizcarra, tomatoes and broccoli. She states 25 minutes into the meal she developed swelling to her right lower eyelid. She states she felt both eyes were itchy. Patient states she felt she was swelling up. She states she has history of multiple episodes of allergic reactions from various things most of them sounds environmental. She states the cafeteria is being remodeled and she believes the remodeling could've triggered her allergic reaction more than the food. Patient is speaking in full sentences. Patient denies being lisinopril. Review of Systems Review of Systems Constitutional: Denies fever or chills [] Eyes: Reports right lower eyelid swelling and facial swelling. Denies change in visual acuity, redness, or eye pain [] HENT: Reports allergic reaction. Denies nasal congestion or sore throat [] Respiratory: Denies cough or shortness of breath [] Cardiovascular: No additional information not addressed in HPI [] GI: Denies abdominal pain, nausea, vomiting, bloody stools or diarrhea [] : Denies dysuria or hematuria [] Musculoskeletal: Denies back pain or joint pain [] Integument: Denies rash or skin lesions [] Neurologic: Denies headache, focal weakness or sensory changes [] All other systems were reviewed and found to be within normal limits, except as documented in this note. Current Medications Current Medications Current Medications Medications (Trade) Dose Ordered Sig/Genia Start Time Stop Time Status Last Admin Dose Admin Diphenhydramine HCl (Benadryl) 25 mg 1X ONCE 11/02/18 14:15 11/02/18 14:16 DC 11/02/18 14:25 25 MG Famotidine (Pepcid Vial) 20 mg 1X ONCE 11/02/18 14:15 11/02/18 14:16 DC 11/02/18 14:28 20 MG Methylprednisolone Sodium Succinate (SOLU-Medrol 125MG VIAL) 125 mg 1X ONCE 11/02/18 14:15 11/02/18 14:16 DC 11/02/18 14:26 125 MG Allergies Allergies Allergies Coded Allergies Type Severity Reaction Last Updated Verified erythromycin base Allergy Intermediate Rash 08/06/18 No hyaluronic acid Allergy Intermediate Hives 08/06/18 Yes Physical Exam Physical Exam Constitutional: Well developed, well nourished, no acute distress, non-toxic appearance. [] HENT: Normocephalic, atraumatic, bilateral external ears normal, oropharynx moist, no oral exudates, nose normal. Airway is open. No throat or tongue swelling. No lip swelling. Eyes: PERRLA, EOMI, conjunctiva normal, no discharge. Right lower eyelid with mild swelling. Neck: Normal range of motion, no tenderness, supple, no stridor. [] Cardiovascular:Heart rate regular rhythm, no murmur [] Lungs & Thorax: Bilateral breath sounds clear to auscultation [] Abdomen: Bowel sounds normal, soft, no tenderness, no masses, no pulsatile masses. [] Skin: Warm, dry, no erythema, no rash. [] Back: No tenderness, no CVA tenderness. [] Extremities: No tenderness, no cyanosis, no clubbing, ROM intact, no edema. [] Neurologic: Alert and oriented X 3, normal motor function, normal sensory function, no focal deficits noted. [] Psychologic: Affect normal, judgement normal, mood normal. [] Current Patient Data Lab Values Laboratory Tests Test 11/02/18 14:15 White Blood Count 6.3 x10^3/uL (4.0-11.0) Red Blood Count 4.15 x10^6/uL (3.50-5.40) Hemoglobin 13.3 g/dL (12.0-15.5) Hematocrit 39.3 % (36.0-47.0) Mean Corpuscular Volume 95 fL (79-100) Mean Corpuscular Hemoglobin 32 pg (25-35) Mean Corpuscular Hemoglobin Concent 34 g/dL (31-37) Red Cell Distribution Width 13.5 % (11.5-14.5) Platelet Count 396 x10^3/uL (140-400) Neutrophils (%) (Auto) 64 % (31-73) Lymphocytes (%) (Auto) 25 % (24-48) Monocytes (%) (Auto) 7 % (0-9) Eosinophils (%) (Auto) 4 % (0-3) H Basophils (%) (Auto) 1 % (0-3) Neutrophils # (Auto) 4.0 x10^3uL (1.8-7.7) Lymphocytes # (Auto) 1.5 x10^3/uL (1.0-4.8) Monocytes # (Auto) 0.4 x10^3/uL (0.0-1.1) Eosinophils # (Auto) 0.2 x10^3/uL (0.0-0.7) Basophils # (Auto) 0.1 x10^3/uL (0.0-0.2) Sodium Level 137 mmol/L (136-145) Potassium Level 3.5 mmol/L (3.5-5.1) Chloride Level 100 mmol/L (98-107) Carbon Dioxide Level 26 mmol/L (21-32) Anion Gap 11 (6-14) Blood Urea Nitrogen 20 mg/dL (7-20) Creatinine 0.9 mg/dL (0.6-1.0) Estimated GFR (Cockcroft-Gault) 77.8 Glucose Level 113 mg/dL (70-99) H Calcium Level 9.6 mg/dL (8.5-10.1) Laboratory Tests 11/02/18 14:15 Laboratory Tests 11/02/18 14:15 EKG EKG [] Radiology/Procedures Radiology/Procedures [] Course & Med Decision Making Course & Med Decision Making Pertinent Labs and Imaging studies reviewed. (See chart for details) This is a 58-year-old female patient presenting to the ED today for allergic reaction. Patient was having lunch in the cafeteria which is being remodeled and developed swelling mostly to her right lower eyelid. Patient was given Solu- Medrol, pepcid and benadryl in the emergency room, she states she feels better, her symptoms have improved. The swelling underneath her right lower eyelid has significantly gone down. Patient was discharged with prednisone, also discharged with instructions to take Benadryl, Pepcid until her symptoms are gone. Follow-up with her PCP next week. Dragon Disclaimer Dragon Disclaimer This electronic medical record was generated, in whole or in part, using a voice recognition dictation system. Departure Departure Impression: Primary Impression: Allergic reaction Disposition: HOME, SELF-CARE Condition: STABLE Referrals: MARIZA ALEXANDER MD (PCP) follow up next week Patient Instructions: Food Allergy, [id number] Additional Instructions: You were evaluated in the emergency room for an allergic reaction. We put you on prednisone for 5 days, also take Benadryl every 6 hours and Pepcid every day until symptoms are gone. Follow-up with the primary care doctor in the course of next week, come back to the ED at any point symptoms worsen. Scripts Famotidine (FAMOTIDINE) 20 Mg Tablet 20 MG PO HS, #7 TAB Prov: BRENDEN FLORES APRN 11/02/18 Prednisone (PREDNISONE) 50 Mg Tablet 1 TAB PO DAILY, #5 TAB Prov: BRENDEN FLORES APRN 11/02/18 Problem Qualifiers Primary Impression: Allergic reaction Encounter type: initial encounter Qualified Codes: T78.40XA - Allergy, unspecified, initial encounter BRENDEN FLORES APRN Nov 02, 2018 16:10
[2018-11-02] MEDS ORDERED: FAMO20TA5 PO (16:18)
[2018-11-02] MEDS ORDERED: PRED50TA PO (16:18)
== END 2018-11-02 16:40 | disposition home or self-care (01) ==
LOC: ER 13:48
DX: T78.40XA Allergy, unspecified, initial encounter (principal); I10 Essential (primary) hypertension; K21.9 Gastro-esophageal reflux disease without esophagitis; Z88.1 Allergy status to other antibiotic agents; Z88.8 Allergy status to other drugs, medicaments and biological substances
CPT/HCPCS: 36415; 80048; 85025; 96374; 96375; 99283; J1200; J2930; J3490

== ENCOUNTER → 2018-11-14 | Outpatient (CLI) | payer OTHER ==
[2018-11-02 13:55] VITALS: BP 183/116
[~2018-11-14] MED LIST changes: +FAMO20TA5 PO; +PRED50TA PO
--- NOTE | 2018-11-14 13:08 | RAD ---
EXAM: MAMMO JACKELYN DIAG LT HISTORY: Left breast pain on antibiotics, history of mastitis COMPARISON: 03/26/2018 This study was interpreted with the benefit of Computerized Aided Detection (CAD). FINDINGS: Breast Density: SCATTERED The breast parenchyma shows scattered fibroglandular densities. Breast parenchyma level B. There are no dominant suspicious masses, suspicious microcalcifications or evidence of architectural distortion. IMPRESSION: Benign findings. Patient on antibiotics for recent mastitis which has improved but came back after stopping the antibiotics. Recommend clinical follow-up for the pain. BI-RADS CATEGORY: 2 BENIGN FINDING RECOMMENDED FOLLOW-UP: 12M 12 MONTH FOLLOW-UP PQRS compliance statement: Patient information was entered into a reminder system with a target due date for the next mammogram. Mammography is a sensitive method for finding small breast cancers, but it does not detect them all and is not a substitute for careful clinical examination. A negative mammogram does not negate a clinically suspicious finding and should not result in delay in biopsying a clinically suspicious abnormality. "Our facility is accredited by the [employer] Mammography Program."
== END | disposition home or self-care (01) ==
LOC: MAMMO 12:39
PROVIDERS: ATTEND Physician Assistant Medical
DX: N61.0 Mastitis without abscess (principal)
CPT/HCPCS: 77065; G0279; 77061

== ENCOUNTER → 2019-01-02 | Outpatient (CLI) | payer OTHER ==
[2019-01-02 13:06] LABS: FREE T4 0.96 ng/dL (0.76-1.46); THYROID STIM HORMONE (TSH) 19.38 uIU/mL (0.358-3.74)
== END | disposition home or self-care (01) ==
LOC: LAB 11:02
PROVIDERS: ATTEND Physician Assistant Medical
DX: E89.0 Postprocedural hypothyroidism (principal)
CPT/HCPCS: 36415; 84439; 84443

== ENCOUNTER → 2019-05-01 | Outpatient (CLI) | payer OTHER ==
--- NOTE | 2019-05-02 10:57 | RAD ---
EXAM: MAMMO JACKELYN SCREENING BILATERAL HISTORY: routine screening evaluation. COMPARISON: Prior mammographic imaging 619, 03/26/2018, 02/03/2017 Bilateral CC and MLO views of the breasts were performed. Bilateral breast tomosynthesis was performed in CC and MLO projections. This study was interpreted with the benefit of Computerized Aided Detection (CAD). Breast Density: The breast parenchyma shows scattered fibroglandular densities. Breast parenchyma level B. FINDINGS: A focal asymmetry is seen in the lateral, superior right breast measuring approximately 10 cm from the nipple. Otherwise no suspicious right breast mass, microcalcification or architectural distortion. No suspicious masses, microcalcifications or architectural distortion is present to suggest malignancy in the left breast. The visualized axillae are unremarkable. IMPRESSION: Right breast focal asymmetry in the upper outer breast BI-RADS CATEGORY: 0 INCOMPLETE: NEEDS ADDITIONAL IMAGING EVALUATION AND/OR PRIOR MAMMOGRAMS FOR COMPARISON. RECOMMENDED FOLLOW-UP: ADD ADDITIONAL IMAGING The patient will be contacted to return for additional imaging and a supplemental report will follow. Spot compression CC and MLO views of the right breast and likely ultrasound of the right breast is recommended. PQRS compliance statement: Patient information was entered into a reminder system with a target due date for the next mammogram. Mammography is a sensitive method for finding small breast cancers, but it does not detect them all and is not a substitute for careful clinical examination. A negative mammogram does not negate a clinically suspicious finding and should not result in delay in biopsying a clinically suspicious abnormality. "Our facility is accredited by the [employer] Mammography Program." ALONDRA
== END | disposition home or self-care (01) ==
LOC: MAMMO 09:22
PROVIDERS: ATTEND Family Medicine
DX: Z12.31 Encounter for screening mammogram for malignant neoplasm of breast (principal); N64.89 Other specified disorders of breast
CPT/HCPCS: 77063; 77067

== ENCOUNTER → 2019-05-02 | Outpatient (CLI) | payer OTHER ==
--- NOTE | 2019-05-02 13:39 | RAD ---
EXAM: DIGITAL DIAGNOSTIC RT HISTORY: further evaluation of a finding noted on her most recent screening mammographic examination. On that examination a focal asymmetry was reported within the right upper outer breast COMPARISON: 05/01/2019, 11/14/2018, 03/16/2018 Spot compression images of the right breast were submitted for evaluation. Breast Density: SCATTERED The breast parenchyma shows scattered fibroglandular densities. Breast parenchyma level B FINDINGS: Spot compression images of the right breast were submitted for evaluation. The abnormality seen on prior screening mammogram effaces on the spot compression images and therefore likely represents normal parenchyma. IMPRESSION: No mammographic evidence of malignancy. BI-RADS CATEGORY: 2 BENIGN FINDING(S) RECOMMENDED FOLLOW-UP: 12M 12 MONTH FOLLOW-UP Annual screening mammography is recommended, unless clinically indicated sooner based on symptoms or change in physical exam. PQRS compliance statement: Patient information was entered into a reminder system with a target due date for the next mammogram. Mammography is a sensitive method for finding small breast cancers, but it does not detect them all and is not a substitute for careful clinical examination. A negative mammogram does not negate a clinically suspicious finding and should not result in delay in biopsying a clinically suspicious abnormality. "Our facility is accredited by the [employer] Mammography Program." KATHD
== END | disposition home or self-care (01) ==
LOC: MAMMO 12:21
PROVIDERS: ATTEND Family Medicine
DX: R92.8 Other abnormal and inconclusive findings on diagnostic imaging of breast (principal)
CPT/HCPCS: 77065

== ENCOUNTER → 2019-05-30 | Outpatient (CLI) | payer OTHER ==
--- NOTE | 2019-05-30 12:35 | RAD ---
EXAM: Left lower extremity venous Doppler sonogram. HISTORY: Pain and swelling. TECHNIQUE: Sinclair scale and color Doppler sonographic evaluation of the left lower extremity veins with spectral waveform analysis was performed. FINDINGS: There is normal color flow, normal compressibility and there are normal spectral waveforms in the common femoral, superficial femoral, popliteal, posterior tibial and greater saphenous veins. IMPRESSION: No Doppler evidence of lower extremity deep venous thrombosis. Electronically signed by: Eloisa Fernandez MD (05/30/2019 12:32 PM) [place] [id number]
== END | disposition home or self-care (01) ==
LOC: US 09:59
PROVIDERS: ATTEND Family Medicine
DX: M79.605 Pain in left leg (principal); M25.562 Pain in left knee
CPT/HCPCS: 93971

== ENCOUNTER → 2019-06-21 | Outpatient (CLI) | payer OTHER ==
[2019-06-21 14:04] LABS: FREE T4 1.12 ng/dL (0.76-1.46); THYROID STIM HORMONE (TSH) 17.402 uIU/mL (0.358-3.74)
== END | disposition home or self-care (01) ==
LOC: LAB 13:11
PROVIDERS: ATTEND Physician Assistant Medical
DX: E89.0 Postprocedural hypothyroidism (principal)
CPT/HCPCS: 36415; 84439; 84443

== ENCOUNTER → 2019-09-20 | Outpatient (CLI) | payer OTHER ==
[~2019-09-20] MED LIST changes: +OMEP40CA45 PO; -OMEP40CA5 PO
--- NOTE | 2019-09-23 01:16 | RAD ---
LUMBAR SPINE WO CONTRAST Date: 09/20/2019 3:30 PM Indication: Low back pain. Left lower extremity radiculopathy. Comparison: Radiograph 12/28/2016 MRI 03/22/2011. Technique: Multi-planar multi-weighted magnetic resonance imaging of the lumbar spine was performed without intravenous contrast using the standard lumbar spine protocol. FINDINGS: The lumbar spine is normally aligned. No acute fracture. Mild to moderate multilevel degenerative disc desiccation and disc height loss. Fatty degenerative endplate changes at L5-S1. The conus terminates at a normal level. No abnormal signal is seen within the visualized distal spinal cord. No clumping of intrathecal nerve roots. No soft tissue abnormality in the visualized abdomen or pelvis. T12-L1: No disc bulge. No facet arthropathy. No significant spinal stenosis or neural foraminal narrowing. L1-L2: No disc bulge. No facet arthropathy. No significant spinal stenosis or neural foraminal narrowing. L2-L3: Disc bulge. Mild facet arthropathy. Prominent dorsal epidural fat. Moderate spinal stenosis. Mild left lateral recess narrowing. Mild bilateral neural foraminal narrowing. L3-L4: Disc bulge. Moderate right and severe left facet arthropathy. Prominent dorsal epidural fat. Mild spinal stenosis. Mild bilateral neural foraminal narrowing. L4-L5: Disc bulge. Mild to moderate facet arthropathy. No spinal stenosis. No neural foraminal narrowing. L5-S1: Disc bulge with right far lateral protrusion which abuts the exiting right L5 nerve root. Mild facet arthropathy. No significant spinal stenosis. Mild right neural foraminal narrowing. IMPRESSION: Mild to moderate lumbar spondylosis, detailed level by level above. Electronically signed by: Sidney Sabillon MD (09/23/2019 1:13 AM) [id number]
== END | disposition home or self-care (01) ==
LOC: MRI 15:42
PROVIDERS: ATTEND Physician Assistant Medical
DX: M51.27 Other intervertebral disc displacement, lumbosacral region (principal); M48.07 Spinal stenosis, lumbosacral region; M47.816 Spondylosis without myelopathy or radiculopathy, lumbar region; M12.88 Other specific arthropathies, not elsewhere classified, other specified site; Z90.710 Acquired absence of both cervix and uterus; Z90.89 Acquired absence of other organs; Z90.49 Acquired absence of other specified parts of digestive tract
CPT/HCPCS: 72148

== ENCOUNTER → 2020-05-13 | Outpatient (CLI) | payer OTHER ==
[~2020-05-13] MED LIST changes: -CETI10TA22 PO; +CETI10TA24 PO; +ESTR-113 PO; -ESTR1TAB15 PO
== END | disposition home or self-care (01) ==
LOC: LAB 11:53
PROVIDERS: ATTEND Internal Medicine Pulmonary Disease
DX: R11.0 Nausea (principal); R05 Cough; Z20.828 Contact with and (suspected) exposure to other viral communicable diseases
CPT/HCPCS: U0003-CS

== ENCOUNTER → 2020-05-25 | Outpatient (CLI) | payer OTHER ==
--- NOTE | 2020-05-25 17:41 | RAD ---
EXAM: BILATERAL DIGITAL 3D SCREENING MAMMOGRAPHY. HISTORY: Routine mammographic screening. TECHNIQUE: Bilateral digital 3D and tomographic images were obtained in CC and MLO projections. Computer-aided detection was not available currently. COMPARISON: 05/01/2019. COMPOSITION: B. There are scattered areas of fibroglandular density. FINDINGS: There are no suspicious masses, microcalcifications or architectural distortion. The parenchymal pattern is stable. Scattered calcifications are benign. BI-RADS CATEGORY 2: Benign. RECOMMENDATION: 1. Routine screening mammography in one year. If mammography demonstrates dense breast tissue (heterogenously dense or extremely dense, category C or D), which could hide abnormalities, and if other risk factors for breast cancer have been identified, supplemental screening tests that may be suggested by the ordering physician may be of benefit. Dense breast tissue, in and of itself, is a relatively common condition. Therefore, this information is not provided to cause undue concern, but rather to raise awareness and to promote discussion with the referring physician regarding the presence of other risk factors, in addition to dense breast tissue. The results of this mammography examination is provided to the patient and referring physician. The patient should contact their referring physician if any questions or concerns exist regarding this report. PQRS compliance statement - Patient information was entered into a reminder system with a target due date for the next mammogram. "Our facility is accredited by the [employer] Mammography Program." Electronically signed by: Kyrie Junior MD (05/25/2020 5:38 PM) [id number]
== END | disposition home or self-care (01) ==
LOC: MAMMO 08:55
PROVIDERS: ATTEND Family Medicine
DX: Z12.31 Encounter for screening mammogram for malignant neoplasm of breast (principal); N64.89 Other specified disorders of breast
CPT/HCPCS: 77063; 77067

== ENCOUNTER → 2020-06-19 | Outpatient (CLI) | payer OTHER ==
[~2020-06-19] MED LIST changes: -CETI10TA24 PO; +CETI10TA74 PO
[2020-06-19 09:00] LABS: BASO # 0.1 x10^3/uL (0.0-0.2); BASO % 1 % (0-3); EOS # 0.2 x10^3/uL (0.0-0.7); EOS % 3 % (0-3); HEMATOCRIT 38.3 % (36.0-47.0); LYMPH # 1.2 x10^3/uL (1.0-4.8); LYMPH % 19 % (24-48); MEAN CORPUSCULAR HEMOGLOBIN 32 pg (25-35); MEAN CORPUSCULAR HGB CONC 34 g/dL (31-37); MEAN CORPUSCULAR VOLUME 93 fL (79-100); MONO # 0.4 x10^3/uL (0.0-1.1); MONO % 6 % (0-9); NEUT # 4.5 x10^3/uL (1.8-7.7); NEUT % 71 % (31-73); PLATELET COUNT 427 x10^3/uL (140-400); RED CELL DISTRIBUTION WIDTH 13.8 % (11.5-14.5); WHITE BLOOD COUNT 6.4 x10^3/uL (4.0-11.0)
[2020-06-19 09:14] LABS: ALBUMIN 3.1 g/dL (3.4-5.0); ALBUMIN/GLOBULIN RATIO 0.6 (1.0-1.7); CALCIUM 9.1 mg/dL (8.5-10.1); CREATININE 0.8 mg/dL (0.6-1.0); GFR 88.5; POTASSIUM 3.9 mmol/L (3.5-5.1); TOTAL BILIRUBIN 0.6 mg/dL (0.2-1.0); TOTAL PROTEIN 8.7 g/dL (6.4-8.2)
[2020-06-19 09:16] LABS: CHOLESTEROL/HDL RATIO 2.8
[2020-06-19 09:26] LABS: FREE T4 1.39 ng/dL (0.76-1.46); THYROID STIM HORMONE (TSH) 4.654 uIU/mL (0.358-3.74)
== END | disposition home or self-care (01) ==
LOC: LAB 08:08
PROVIDERS: ATTEND Physician Assistant Medical
DX: E89.0 Postprocedural hypothyroidism (principal)
CPT/HCPCS: 36415; 80053; 80061; 84439; 84443; 85025

== ENCOUNTER → 2020-10-30 | Outpatient (CLI) | payer OTHER ==
[~2020-10-30] MED LIST changes: -ISOS30TA4 PO; +ISOS30TA68 PO; -OMEP40CA45 PO; +OMEP40CA7 PO
[2020-10-30 10:35] LABS: FREE T4 1.32 ng/dL (0.76-1.46); THYROID STIM HORMONE (TSH) 3.235 uIU/mL (0.358-3.74)
== END ==
LOC: LAB 08:56
PROVIDERS: ATTEND Physician Assistant Medical
DX: E89.0 Postprocedural hypothyroidism (principal)
CPT/HCPCS: 36415; 84439; 84443

== ENCOUNTER → 2021-02-18 | Outpatient (CLI) | payer OTHER ==
[~2021-02-18] MED LIST changes: +OMEP40CA45 PO; -OMEP40CA7 PO
--- NOTE | 2021-02-18 11:08 | CARD ---
MR#: [id number] Date of Study: 02/18/2021 Ordering Physician: RIA BIRMINGHAM, Referring Physician: RIA BIRMINGHAM Tech: Aster Mckeon [facility] APPROVED REPORT EXAM: Two-dimensional and M-mode echocardiogram with Doppler and color Doppler. Other Information Quality : AverageHR: 86bpm Rhythm : NSRTechnically limited study due to body habitus. INDICATION Hypertension/HCVD RISK FACTORS Hypertension Obesity 2D DIMENSIONS RVDd2.9 (2.9-3.5cm)Left Atrium(2D)3.5 (1.6-4.0cm) IVSd1.2 (0.7-1.1cm)Aortic Root(2D)3.5 (2.0-3.7cm) LVDd4.1 (3.9-5.9cm)LVOT Diameter2.2 (1.8-2.4cm) PWd1.2 (0.7-1.1cm)LVDs3.2 (2.5-4.0cm) FS (%) 21.9 %SV33.0 ml LVEF(%)44.8 (>50%) Aortic Valve AoV Peak Asif.134.2cm/sAoV VTI26.2cm AO Peak GR.7.2mmHgLVOT Peak Asif.124.2cm/s AO Mean GR.4mmHgAVA (VMAX)3.61cm2 Mitral Valve MV E Kgnhumtw12.8cm/sMV DECEL [id number] MV A Jnoekmxi37.2cm/sE/A Ratio0.9 Pulmonary Valve PV Peak Guzxipbs062.2cm/s Tricuspid Valve TR P. Trlqbowb207er/sTR Peak Gr.27mmHg Pulmonary Vein S1 Skayuisz86.2cm/sD2 Rbxkpwrc23.3cm/s PVa [id number] LEFT VENTRICLE The left ventricle is normal size. There is mild concentric left ventricular hypertrophy. The left ve ntricular systolic function is normal and the ejection fraction is within normal range. Estimated eje ction fraction 60-65%. There is normal LV segmental wall motion. The left ventricular diastolic funct ion and filling is normal for age. RIGHT VENTRICLE The right ventricle is normal size. There is normal right ventricular wall thickness. The right ventr icular systolic function is normal. ATRIA The left atrium size is normal. The right atrium size is normal. The interatrial septum is intact wit h no evidence for an atrial septal defect or patent foramen ovale as noted on 2-D or Doppler imaging. AORTIC VALVE The aortic valve is normal in structure and function. Doppler and Color Flow revealed trace aortic re gurgitation. There is no significant aortic valvular stenosis. MITRAL VALVE The mitral valve is normal in structure and function. There is no evidence of mitral valve prolapse. There is no mitral valve stenosis. Doppler and Color Flow revealed no mitral valve regurgitation note d. TRICUSPID VALVE The tricuspid valve is normal in structure and function. Doppler and Color Flow revealed trace tricus pid regurgitation. Estimated PAP 30 mmHg. There is no tricuspid valve stenosis. PULMONIC VALVE Not well visualized. GREAT VESSELS The aortic root is normal in size. The ascending aorta is normal in size. The IVC is normal in size a nd collapses >50% with inspiration. PERICARDIAL EFFUSION There is no evidence of significant pericardial effusion. Critical Notification Critical Value: No <Conclusion> The left ventricular systolic function is normal and the ejection fraction is within normal range. E stimated ejection fraction 60-65%. There is normal LV segmental wall motion. Signed by : Chris Fabian, Electronically Approved : 02/18/2021 11:08:15
== END ==
LOC: ECHO 07:28
PROVIDERS: ATTEND Internal Medicine Cardiovascular Disease
DX: I51.7 Cardiomegaly (principal)
CPT/HCPCS: 93306

== ENCOUNTER → 2021-06-02 | Outpatient (CLI) | payer OTHER ==
[~2021-06-02] MED LIST changes: -OMEP40CA45 PO; +OMEP40CA7 PO
--- NOTE | 2021-06-02 09:16 | RAD ---
EXAM: Bilateral digital screening mammogram with tomosynthesis. HISTORY: 61-year-old female presents for screening mammography. TECHNIQUE: Full-field digital craniocaudal and mediolateral oblique 2D and 3D tomosynthesis images of both breasts are obtained for evaluation. Computer aided detection was applied. COMPARISON: 05/25/2020 BREAST PARENCHYMAL DENSITY: Level B - Scattered fibroglandular densities. FINDINGS: There is no new suspicious mass, microcalcification or region of architectural distortion. IMPRESSION: BI-RADS Category 2: Benign finding(s). RECOMMENDATION: Annual mammography is recommended. If your mammogram demonstrates that you have dense breast tissue, which could hide abnormalities, and if you have other risk factors for breast cancer that have been identified, you might benefit from s upplemental screening tests that may be suggested by your ordering physician. Dense breast tissue, i n and of itself, is a relatively common condition. This information is not provided to cause undue c oncern, but rather to raise your awareness and to promote discussion with your physician regarding th e presence of other risk factors, in addition to dense breast tissue. A report of your mammography re sults will be sent to you and your physician. You should contact your physician if you have any ques tions or concerns regarding this report. Mammography is a sensitive method for finding small breast cancers, but it does not detect them all a nd is not a substitute for careful clinical examination. A negative mammogram does not negate a clin ically suspicious finding and should not result in delay in biopsying a clinically suspicious abnorma lity. PQRS compliance statement - Patient information was entered into a reminder system with a target due date for the next mammogram. "Our facility is accredited by the [employer] Mammography [employer]." Electronically signed by: Eloisa Fernandez MD (06/02/2021 9:13 AM) [id number]
== END ==
LOC: MAMMO 07:30
PROVIDERS: ATTEND Family Medicine
DX: Z12.31 Encounter for screening mammogram for malignant neoplasm of breast (principal)
CPT/HCPCS: 77063; 77067